=== PATIENT | female | born 1975 | race African-American/Black ===

== ENCOUNTER 2021-07-01 10:46 | Emergency (ER) | payer SELFPAY ==
[~2021-07-01] VITALS: Ht 162.6 cm; Wt 55.0 kg
[2021-07-01] MEDS ORDERED: HALOPERIDOL LACTATE 5MG/ML VIAL IM STA (10:53)
[2021-07-01] MEDS ORDERED: LORAZEPAM 2MG/ML CPJ IM STA (10:53)
[2021-07-01 12:22] LABS: BASOPHILS % 1.3 % (0.0-2.0); EOSINOPHILS % 1.7 % (0.0-5.0); HEMATOCRIT. 31.3 % (36.0-48.0); HEMOGLOBIN. 9.6 g/dL (12.0-16.0); LYMPHOCYTES % 30.5 % (20.0-50.0); MEAN CORPUSCULAR HEMOGLOBIN 19.5 pg (28.0-32.0); MEAN CORPUSCULAR VOLUME 63.5 fL (81.0-99.0); MEAN PLATELET VOLUME 5.8 fl (7.4-10.4); MONOCYTES % 5.7 % (2.0-8.0); NEUTROPHILS % 60.8 % (40.0-76.0); PLATELET 391 x1000/uL (130-400); RED BLOOD CELL COUNT 4.92 mill/uL (4.2-5.4); RED CELL DISTRIBUTION WIDTH 20.1 % (11.6-14.6)
[2021-07-01 12:36] LABS: CHLORIDE 107 mEq/L (98-107)
[2021-07-01 12:40] LABS: ETHANOL BLOOD 84 mg/dL
[2021-07-01 12:44] LABS: HCG SCREEN NEGATIVE
[2021-07-01 12:47] LABS: B-HCG QUANTITATIVE < 1 mIU/mL (<3)
[2021-07-01 12:55] LABS: PLATELET ESTIMATE NORMAL
[2021-07-01 18:41] LABS: CLARITY URINE CLEAR (CLEAR); COLOR URINE YELLOW (YELLOW); KETONES URINE NEGATIVE (NEGATIVE); LEUKOCYTE ESTERASE URINE NEGATIVE (NEGATIVE); NITRITE URINE NEGATIVE (NEGATIVE); OCCULT BLOOD URINE NEGATIVE (NEGATIVE); PROTEIN URINE NEGATIVE (NEGATIVE)
[2021-07-01 18:51] LABS: *BARBITURATES SCREEN URINE NEGATIVE (NEGATIVE); *BENZODIAZEPINES SCREEN URINE NEGATIVE (NEGATIVE)
[2021-07-01 18:52] LABS: METHADONE URINE SCREEN NEGATIVE (NEGATIVE); OPIATES URINE SCREEN NEGATIVE (NEGATIVE)
[2021-07-01 18:55] LABS: *AMPHETAMINES SCREEN URINE PRESUMTIVE POSITIVE (NEGATIVE)
[2021-07-01 18:56] LABS: *COCAINE SCREEN URINE PRESUMTIVE POSITIVE (NEGATIVE); CANNABINOID URINE SCREEN PRESUMTIVE POSITIVE (NEGATIVE); PHENCYCLIDINE URINE SCREEN PRESUMTIVE POSITIVE (NEGATIVE)
[2021-07-02] MEDS: OLANZAPINE 5MG TABLET PO SCH ×2 (11:42→11:44)
[2021-07-02 12:17] VITALS: BP 126/75
== END 2021-07-03 12:58 | disposition home or self-care (01) ==
LOC: EDBD 10:46 → ER 10:46
DX: R45.851 Suicidal ideations (principal); F10.129 Alcohol abuse with intoxication, unspecified; R51.9 Headache, unspecified; Z20.822 Contact with and (suspected) exposure to COVID-19; Y90.4 Blood alcohol level of 80-99 mg/100 ml
CPT/HCPCS: 36415; 70450; 80053; 80305; 80307; 80320; 80329; 81003; 84702; 84703; 85025; 96372; 99285; C9803; J1630; J2060; U0003; U0005; Z7610; G0480